=== PATIENT | male | born 1955 | race African-American/Black ===

== ENCOUNTER 2017-02-12 09:14 | Emergency (ER) | payer MEDICAID, OTHER ==
[2017-02-12] MEDS ORDERED: Dexamethasone IV* 4 MG/ML 1 ML (4 MG) IV SLOW PU ONE (09:55)
[2017-02-12] MEDS ORDERED: cloNIDine TAB* 0.1 MG PO ONE (09:55)
[2017-02-12] MEDS ORDERED: Famotidine TAB* 20 MG PO ONE (10:13)
[2017-02-12] MEDS ORDERED: predniSONE TAB* 20 MG PO ONE (10:14)
[2017-02-12 10:38] VITALS: BP 169/139
--- NOTE | 2017-02-12 21:03 | ED ---
Sotero Santos Billy, scribed for Durga Beckwith MD on 02/12/17 at 0927 . Throat Pain/Nasal Congestion - HPI Summary HPI Summary: The patient is a 61 year-old male coming to [facility] from [facility] for evaluation of a choking sensation this morning. He denies any fevers or chills. He denies any sore throat last night. In [facility], KIM [place] has given the patient Benadryl 50mg IM, prednisone 40mg PO, and epinephrine. Per records from the [facility], the patient's symptoms did not improve despite these treatments. - History of Current Complaint Chief Complaint: EDThroatPain Time Seen by Provider: 02/12/17 09:21 Hx Obtained From: Patient Onset/Duration: Gradual Onset, Lasting Hours Severity: Moderate Cough: None - Allergies/Home Medications Allergies/Adverse Reactions: Allergies Allergy/AdvReac Type Severity Reaction Status Date / Time Lactose Allergy Unknown Verified 02/12/17 09:24 Reaction Details Peanut-containing Drug Allergy Unknown Verified 02/12/17 09:24 Products Reaction Details PMH/Surg Hx/FS Hx/Imm Hx Endocrine/Hematology History: Denies: Hx Diabetes Cardiovascular History: Reports: Hx Hypertension Denies: Hx Congestive Heart Failure Respiratory History: Reports: Hx Asthma GI History: Reports: Hx Gastroesophageal Reflux Disease, Other GI Disorders - COLON CANCER W/PARTIAL COLECTOMY History: Denies: Hx Renal Disease Sensory History: Reports: Hx Contacts or Glasses Opthamlomology History: Reports: Hx Contacts or Glasses - Cancer History Cancer Type, Location and Year: COLON CA - Surgical History Surgery Procedure, Year, and Place: PARTIAL COLECTOMY 2005. APPENDECTOMY 2007 - Immunization History Date of Tetanus Vaccine: Unk Date of Influenza Vaccine: Unk Infectious Disease History: Denies: Traveled Outside the [place] in Last 30 Days - Family History Known Family History: Positive: Unknown - The patient is unsure of his family history. - Social History Alcohol Use: None Substance Use Type: Reports: None Smoking Status (MU): Former Smoker Review of Systems Negative: Fever, Chills ENT: Other - Choking sensation Negative: Sore Throat Negative: Cough All Other Systems Reviewed And Are Negative: Yes Physical Exam - Summary Physical Exam Summary: Vital signs: Reviewed Gen.: Patient is a well-developed and nourished male in no acute distress. Patient is lying comfortably on the stretcher. Head: Normacephalic and atraumatic Eyes: PERRLA, EOMI x2. Ears: Right and Left ear canal and TM WNL Nose and mouth: positive slight swelling of the uvula. There is no lip or tongue swelling. No throat swelling. No airway compromise. Neck: Supple, no lymphadenopathy, no JVD Lungs: CTA B/L CVS: S1 & S2 present. No murmurs appreciated. ABDOMEN: Soft, non-tender. No signs of distention. No rebound no guarding, and no masses palpated. Bowel sounds are normal. EXTREMITIES: FROM in all major joints, no edema, no cyanosis or clubbing. NEURO: Alert and oriented x 3. No acute neurological deficits. Speech is normal and follows commands. SKIN: Dry and warm Triage Information Reviewed: Yes Vital Signs On Initial Exam: Initial Vitals Temp Pulse Resp BP Pulse Ox 97.3 F 82 18 176/107 99 02/12/17 09:18 02/12/17 09:18 02/12/17 09:18 02/12/17 09:18 02/12/17 09:18 Vital Signs Reviewed: Yes Diagnostics - Vital Signs Vital Signs Temp Pulse Resp BP Pulse Ox 02/12/17 09:18 97.3 F 82 18 176/107 99 - Laboratory Lab Statement: Any lab studies that have been ordered have been reviewed, and results considered in the medical decision making process. EENT Course/Dx - Course Assessment/Plan: The patient is a 61 year-old male coming to [facility] from [facility] for evaluation of a choking sensation this morning. He denies any fevers or chills. He denies any sore throat last night. In [facility], KIM [place] has given the patient Benadryl 50mg IM, prednisone 40mg PO, and epinephrine. Per records from the [facility], the patient's symptoms did not improve despite these treatments. Rapid strep is found to be negative. Patient is asymptomatic. Patient is afebrile and has no lymphadenopathy therefore I have low suspicion for an infectious etiology. He denies any new medications or new products therefore low suspicion for chemical irritants. I believe symptoms may be related to an allergic reaction. He was given before arrival Benadryl, Prednisone and epinephrine. At arrival patient feels better , He is asymptomatic. He was found to have an increased BP. BP is 143/99. Patient was given 1 dose of Clonidine which he normally takes every day. After medications he is feeling better. He will be discharged back to [facility] with recommendations to continue benadryl PRN, prednisone 40 mg QD and pepcid 10 mg daily. Epipen PRN. ENT / Rn Pacu as needed. I discussed all the findings and test results with the patient. Patient was instructed to return to the emergency room immediately if any of the symptoms return or worsens. Plan of care was discussed with the patient and understands and agrees. All questions were answered at patient satisfaction. There were no further complaints or concerns. Lung exam before discharge: CTA B/L. Good air exchange. No wheezing or crackles heard. CVS: S1 and S2 present. No murmurs appreciated. Patient is alert and oriented x 3. Patient is hemodynamically stable. Patient will be discharged home with follow up PCP in the next 2-3 days - Differential Diagnoses Differential Diagnoses: Sinusitis, Tonsilitis, URI/Bronchitis - Diagnoses Provider Diagnoses: Uvulitis Discharge - Discharge Plan Condition: Stable Disposition: OTHER Discharge Disposition Comment: [place] Patient Education Materials: Uvulitis (ED) Referrals: Lydia BULLOCK,Eugenio Oliver [Primary Care Provider] - The documentation as recorded by the Sotero rivas Billy accurately reflects the service I personally performed and the decisions made by me, Durga Beckwith MD.
== END 2017-02-12 10:39 ==
LOC: ED 09:14
DX: K12.2 Cellulitis and abscess of mouth (principal); R09.89 Other specified symptoms and signs involving the circulatory and respiratory systems; R07.0 Pain in throat; Z87.891 Personal history of nicotine dependence
CPT/HCPCS: 87651; 96374; 99283; A9270-GY; J7512

== ENCOUNTER → 2017-02-19 15:23 | Emergency (ER) | payer OTHER ==
[~2017-02-19 15:23] MED LIST: Acetaminophen TAB* 325 MG PO ONE; Dexamethasone IV* 4 MG/ML 5 ML VIAL (20 MG) IVPB ONE; Iohexol 300* (CONTRAST) 10 ML SDV IV ONE; Ketorolac INJ* 30 MG/ML 1 ML VIAL IV ONE; NS 0.9% 1000 ML* 1,000 ML IV ONE; NS 0.9% 1000 ML* 2,000 ML IV ONE; cefTRIAXone(*) 1 GM in NS 0.9% 50 ML* 50 ML IVPB ONE
[2017-02-19 16:20] LABS: Hematocrit 40 % (42-52); Hemoglobin 13.7 g/dl (14.0-18.0); Mean Corpuscular HGB Conc 34 g/dl (31-36); Mean Corpuscular Hemoglobin 30 pg (27-31); Mean Corpuscular Volume 88 fL (80-94); Mean Platelet Volume 8 um3 (7.4-10.4); Red Blood Count 4.57 10^6/ul (4.0-5.4); Red Cell Distribution Width 14 % (10.5-15); White Blood Count 10.1 10^3/ul (3.5-10.8)
--- NOTE | 2017-02-19 16:37 | RAD ---
INDICATION: Cough and fever COMPARISON: May 01, 2015 TECHNIQUE: An AP portable view obtained at 1628 hours is submitted. FINDINGS: Bones/Soft Tissues: There are no acute bony findings. Cardiomediastinal: The cardiomediastinal silhouette is normal. Lungs: There are no infiltrates. Mild chronic right basilar hypoventilation Pleura: There are no pleural effusions. Other: Chronic elevation right hemidiaphragm. IMPRESSION: NO ACTIVE DISEASE.
[2017-02-19 16:47] LABS: BUN/Creatinine Ratio 15.3 (8-20); C Reactive Protein 67.26 mg/L (< 5.00); Calcium 9.5 mg/dL (8.6-10.3); EGFR African American 78.3 (>60); EGFR Non-African American 60.9 (>60); Globulin 3.3 g/dL (2-4); Potassium 3.9 mmol/L (3.5-5.0); Total Bilirubin 0.6 mg/dL (0.2-1.0); Total Protein 7.3 g/dL (6.4-8.9)
--- NOTE | 2017-02-19 17:40 | RAD ---
INDICATION: Sore throat COMPARISON: None TECHNIQUE: Axial source images were acquired following the intravenous administration of 50 mL Omnipaque 300 Coronal and sagittal reconstructed images were acquired. FINDINGS: Brain and skull base: There are no CT abnormalities of the visualized brain or skull base. The mastoid air cells are well aerated. Salivary glands: The major salivary glands appear normal. Paranasal sinuses: The paranasal sinuses are clear. Nasopharynx: The nasopharynx and nasal cavity appear normal. Oropharynx: The oral, and oropharynx appear normal. Larynx: There are no laryngeal abnormalities. Thyroid: The thyroid appears normal. Lymph nodes: There is no lymphadenopathy by size criteria. Trachea/esophagus: There are no abnormalities of the trachea or visualized esophagus. The visualized lung apices are clear.. Vessels:The vessels appear normal. Bones and soft tissues:The remaining soft tissue elements of the neck are normal. There are no acute bony findings. There are moderate spondylitic changes of the cervical spine from C4 through C7 Other: None IMPRESSION: NO ACUTE CT FINDINGS. NO MASS OR INFLAMMATORY CHANGE. SPONDYLITIC CHANGE OF THE CERVICAL SPINE.
--- NOTE | 2017-02-19 22:25 | RAD ---
INDICATION: Fever. Abdominal pain. COMPARISON: CT abdomen pelvis May 01, 2015 TECHNIQUE: Axial source images were obtained from the hemidiaphragms to the symphysis pubis following administration of oral and intravenous contrast. 139 mL Omnipaque 300 was utilized. Coronal and sagittal reconstructed images were acquired. Lung bases: There is minimal right basilar atelectasis related to diaphragmatic eventration. The lung bases are otherwise clear. Liver: The liver is normal in size. There are no masses. There is no ductal dilatation. Gallbladder: There are no calcified gallstones. There is no evidence of wall thickening or pericholecystic fluid. Spleen: The spleen is normal in size. There are no masses. Pancreas: There is no focal pancreatic mass or ductal dilatation. Adrenal glands: Left adrenal gland is normal. There is a stable 1 cm right adrenal nodule. Kidneys: The kidneys are normal in size and position. There are prompt nephrograms and there is prompt excretion bilaterally. There are no renal parenchymal masses. There is no evidence of nephrolithiasis. Adenopathy: There is no evidence of adenopathy by size criteria. Fluid collections: There are no free or localized fluid collections. Vessels:There are no significant atherosclerotic changes involving the aorta. There is no focal aneurysm. The iliac vessels are normal in caliber. The IVC appears normal. GI tract: The upper GI tract is unremarkable. There is partial colectomy. There is an ileocolonic anastomosis. There are no bowel obstructive findings Pelvic organs: The prostate is enlarged Bladder: There are no bladder masses. Abdominal and pelvic soft tissues: There is a fat-containing periumbilical hernia, unchanged. Osseous structures: There are no acute osseous findings . There is degenerative disc disease at L5-S1 with mild progressive narrowing and mild vacuum disc phenomena. There is again a rounded area for a fracture involving the inferior endplate of L5. There is slightly increased sclerosis about the periphery of this lesion. This is likely degenerative.. Other: Eventration right hemidiaphragm with herniation of a portion of the right hepatic lobe. IMPRESSION: 1. No acute CT findings. No mass or inflammatory change. 2. 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 3. Stable 1 cm right adrenal gland nodule 4. Partial colectomy, unchanged. 5. Fat-containing periumbilical hernia, unchanged 6. Prostatic hypertrophy. 7. Subtle increase in size and increased sclerosis about the rounded area of rarefaction involving the inferior endplate of L5.
--- NOTE | 2017-02-19 22:55 | ED ---
Christiana Santos SooYoung, scribed for Jd Reid MD on 02/19/17 at 1551 . Throat Pain/Nasal Congestion - HPI Summary HPI Summary: A 73 y/o M [employer] inmate presents to ED with c/o sore throat onset approx 2-3 days ago. Associated sx: dysphagia, dyspnea, cough, chest and abd pain, frontal LUCERO, chills last night, weakness, collapse. Today, pt was found on ground after collapse. Pt denies LOC. Denies: diarrhea, dysuria. Pt was seen in ED one week ago, and given steroids which alleviated the pain. SHx: appy, another surgery but pt is unsure of what it is. - History of Current Complaint Chief Complaint: EDThroatPain Time Seen by Provider: 02/19/17 15:40 Hx Obtained From: Patient Onset/Duration: Gradual Onset, Lasting Days, Still Present Severity: Moderate Associated Signs And Symptoms: Positive: Dysphagia Cough: Productive - mildly Related History: Smoking - Allergies/Home Medications Allergies/Adverse Reactions: Allergies Allergy/AdvReac Type Severity Reaction Status Date / Time Lactose Allergy Unknown Verified 02/12/17 09:24 Reaction Details Peanut-containing Drug Allergy Unknown Verified 02/12/17 09:24 Products Reaction Details PMH/Surg Hx/FS Hx/Imm Hx Previously Healthy: No Endocrine/Hematology History: Denies: Hx Diabetes Cardiovascular History: Reports: Hx Hypertension Denies: Hx Congestive Heart Failure Respiratory History: Reports: Hx Asthma GI History: Reports: Hx Gastroesophageal Reflux Disease, Other GI Disorders - COLON CANCER W/PARTIAL COLECTOMY History: Denies: Hx Renal Disease Sensory History: Reports: Hx Contacts or Glasses Opthamlomology History: Reports: Hx Contacts or Glasses - Cancer History Cancer Type, Location and Year: COLON CA - Surgical History Surgery Procedure, Year, and Place: PARTIAL COLECTOMY 2005. APPENDECTOMY 2007 - Immunization History Date of Tetanus Vaccine: Unk Date of Influenza Vaccine: Unk Infectious Disease History: No Infectious Disease History: Denies: Traveled Outside the [place] in Last 30 Days - Family History Known Family History: Positive: Unknown - The patient is unsure of his family history. - Social History Occupation: Unemployed - [employer] Lives: [facility] - [employer] Alcohol Use: None Hx Substance Use: No Substance Use Type: Reports: None Hx Tobacco Use: Yes Smoking Status (MU): Former Smoker Review of Systems Positive: Chills Positive: Sore Throat, Other - pos: dysphagia Positive: Chest Pain, Other - pos: dyspnea Positive: Cough Positive: Abdominal Pain. Negative: Diarrhea Negative: dysuria Neurological: Other Positive: Headache, Weakness - collapse . Negative: Syncope All Other Systems Reviewed And Are Negative: Yes Physical Exam Triage Information Reviewed: Yes Vital Signs On Initial Exam: Initial Vitals Temp Pulse Resp BP Pulse Ox 99.7 F 94 20 110/72 98 02/19/17 15:26 02/19/17 15:26 02/19/17 15:26 02/19/17 15:26 02/19/17 15:26 Vital Signs Reviewed: Yes Appearance: Positive: No Pain Distress, Ill-Appearing - mildly Skin: Positive: Warm, Skin Color Reflects Adequate Perfusion, Dry Head/Face: Positive: Normal Head/Face Inspection Eyes: Positive: EOMI, ARNEL ENT: Positive: Other - NO SWELLING OF POSTERIOR PHARYNX; UVULA SIZE IS NML Neck: Positive: Supple, Nontender Respiratory/Lung Sounds: Positive: Breath Sounds Present, Other - COUGH Cardiovascular: Positive: Tachycardia Abdomen Description: Positive: Soft, Other: - MILDLY TENDER AT RUQ AND LUQ Bowel Sounds: Positive: Present Musculoskeletal: Positive: Normal, Strength/ROM Intact Neurological: Positive: Normal, Sensory/Motor Intact, Alert, Oriented to Person Place, Time Psychiatric: Positive: Affect/Mood Appropriate - [place] Coma Scale Coma Scale Total: 15 Diagnostics - Vital Signs Vital Signs Temp Pulse Resp BP Pulse Ox 02/19/17 15:33 101.3 F 112 20 140/113 96 02/19/17 15:26 99.7 F 94 20 110/72 98 - Laboratory Lab Results: Lab Results 02/19/17 02/19/17 02/19/17 Range/Units 15:17 15:30 15:30 WBC 10.1 (3.5-10.8) 10^3/ul RBC 4.57 (4.0-5.4) 10^6/ul Hgb 13.7 L (14.0-18.0) g/dl Hct 40 L (42-52) % MCV 88 (80-94) fL MCH 30 (27-31) pg MCHC 34 (31-36) g/dl RDW 14 (10.5-15) % Plt Count 223 (150-450) 10^3/ul MPV 8 (7.4-10.4) um3 Neut % (Auto) 74.4 (38-83) % Lymph % (Auto) 14.1 L (25-47) % [place] % (Auto) 9.1 H (1-9) % Eos % (Auto) 1.6 (0-6) % Baso % (Auto) 0.8 (0-2) % Absolute Neuts (auto) 7.5 (1.5-7.7) 10^3/ul Absolute Lymphs (auto) 1.4 (1.0-4.8) 10^3/ul Absolute Monos (auto) 0.9 H (0-0.8) 10^3/ul Absolute Eos (auto) 0.2 (0-0.6) 10^3/ul Absolute Basos (auto) 0.1 (0-0.2) 10^3/ul Absolute Nucleated RBC 0 10^3/ul Nucleated RBC % 0 INR (Anticoag Therapy) 1.03 (0.89-1.11) APTT 32.2 (26.0-36.3) seconds Sodium (133-145) mmol/L Potassium (3.5-5.0) mmol/L Chloride (101-111) mmol/L Carbon Dioxide (22-32) mmol/L Anion Gap (2-11) mmol/L BUN (6-24) mg/dL Creatinine (0.67-1.17) mg/dL Est GFR ( Amer) (>60) Est GFR (Non-Af Amer) (>60) BUN/Creatinine Ratio (8-20) Glucose (70-100) mg/dL Calcium (8.6-10.3) mg/dL Total Bilirubin (0.2-1.0) mg/dL AST (13-39) U/L ALT (7-52) U/L Alkaline Phosphatase (34-104) U/L C-Reactive Protein (< 5.00) mg/L Total Protein (6.4-8.9) g/dL Albumin (3.2-5.2) g/dL Globulin (2-4) g/dL Albumin/Globulin Ratio (1-3) Lipase (11.0-82.0) U/L Influenza A (Rapid) (Negative) Influenza B (Rapid) (Negative) Group A Strep Rapid Negative (Negative) 02/19/17 02/19/17 Range/Units 15:30 20:46 WBC (3.5-10.8) 10^3/ul RBC (4.0-5.4) 10^6/ul Hgb (14.0-18.0) g/dl Hct (42-52) % MCV (80-94) fL MCH (27-31) pg MCHC (31-36) g/dl RDW (10.5-15) % Plt Count (150-450) 10^3/ul MPV (7.4-10.4) um3 Neut % (Auto) (38-83) % Lymph % (Auto) (25-47) % [place] % (Auto) (1-9) % Eos % (Auto) (0-6) % Baso % (Auto) (0-2) % Absolute Neuts (auto) (1.5-7.7) 10^3/ul Absolute Lymphs (auto) (1.0-4.8) 10^3/ul Absolute Monos (auto) (0-0.8) 10^3/ul Absolute Eos (auto) (0-0.6) 10^3/ul Absolute Basos (auto) (0-0.2) 10^3/ul Absolute Nucleated RBC 10^3/ul Nucleated RBC % INR (Anticoag Therapy) (0.89-1.11) APTT (26.0-36.3) seconds Sodium 137 (133-145) mmol/L Potassium 3.9 (3.5-5.0) mmol/L Chloride 108 (101-111) mmol/L Carbon Dioxide 21 L (22-32) mmol/L Anion Gap 8 (2-11) mmol/L BUN 18 (6-24) mg/dL Creatinine 1.18 H (0.67-1.17) mg/dL Est GFR ( Amer) 78.3 (>60) Est GFR (Non-Af Amer) 60.9 (>60) BUN/Creatinine Ratio 15.3 (8-20) Glucose 127 H (70-100) mg/dL Calcium 9.5 (8.6-10.3) mg/dL Total Bilirubin 0.60 (0.2-1.0) mg/dL AST 19 (13-39) U/L ALT 18 (7-52) U/L Alkaline Phosphatase 67 (34-104) U/L C-Reactive Protein 67.26 H (< 5.00) mg/L Total Protein 7.3 (6.4-8.9) g/dL Albumin 4.0 (3.2-5.2) g/dL Globulin 3.3 (2-4) g/dL Albumin/Globulin Ratio 1.2 (1-3) Lipase 10 L (11.0-82.0) U/L Influenza A (Rapid) Negative (Negative) Influenza B (Rapid) Negative (Negative) Group A Strep Rapid (Negative) Result Diagrams: 02/19/17 15:30 02/19/17 15:30 Lab Statement: Any lab studies that have been ordered have been reviewed, and results considered in the medical decision making process. - Radiology CXR Xray Interpretation: No Acute Changes - IMPRESSION: No active dz. Radiology Interpretation Completed By: Radiologist - CT Neck CT CT Interpretation: No Acute Changes - IMPRESSION: No acute CT findings. No mass or inflammatory changes. Spondylitic change of the cervical spine. CT Interpretation Completed By: Radiologist A/P CT CT Interpretation: No Acute Changes - IMPRESSION: 1. No acute CT findings. No mass or inflammatory change. 2. 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 3. Stable 1 cm right adrenal gland nodule 4. Partial colectomy, unchanged. 5. Fat -containing periumbilical hernia, unchanged 6. Prostatic hypertrophy. 7. Subtle increase in size and increased sclerosis about the rounded area of rarefaction involving the inferior endplate of L5. CT Interpretation Completed By: Radiologist Re-Evaluation - Re-Evaluation 1 Re-Evaluation Time: 19:59 Change: Improved Comment: Discussing results with pt. 2 Re-Evaluation Time: 22:34 Change: Improved Comment: Discussing CT results with pt. EENT Course/Dx - Course Course Of Treatment: Pt is a 73 y/o M inmate presenting with sore throat onset approx 2-3 days ago. Associated sx: dysphagia, dyspnea, cough, chest and abd pain, frontal LUCERO, chills last night, weakness, collapse. Today, pt was found on ground after collapse. Pt denies LOC. Denies: diarrhea, dysuria. Pt given fluids, Ceftriaxone, Decadron, Toradol and Tylenol in ED. Strep is negative. CRP is 67.26. CXR was neg. CT showed no acute findings. Both flu tests were negative. A/P CT showed no acute findings. IMPROVED IN ED. DISCUSSED RESULTS WITH PATIENT. I RECOMMEND PATIENT STAYS IN THE INFIMARY UNTIL AFEBRILE AND CONTINUE PREDNISONE 40MG ONCE A DAY AND AUGMENTIN 875MG TWICE A DAY. DISCHARGE HOME STABLE. Assessment/Plan: NO CRITICAL CARE TIME - Diagnoses Provider Diagnoses: Fever, Pharyngitis, Abdominal pain Discharge - Discharge Plan Condition: Stable Disposition: HOME Patient Education Materials: Pharyngitis (ED), Fever in Adults (ED) Referrals: Lydia BULLOCK,Eugenio Oliver [Primary Care Provider] - Additional Instructions: FOLLOW UP WITH YOUR DOCTOR. FOLLOW UP WITH AN ENT SPECIALIST FOR EVALUATION OF RECURRENT UVULITIS. CONSIDER REST IN THE INFIRMARY FOR SEVERAL DAYS UNTIL FEVER FREE. ACETAMINOPHEN DIRECTED NEEDED FOR FEVER. CONTINUE PREDNISONE 40MG ONCE A DAY FOR THE NEXT 3 DAYS. AUGMENTIN 875MG TWICE A DAY FOR 10 DAYS. RETURN TO THE EMERGENCY DEPARTMENT FOR ANY WORSENING OF YOUR CONDITION OR QUESTIONS OR CONCERNS. The documentation as recorded by the Christiana rivas SooYoung accurately reflects the service I personally performed and the decisions made by me, Jd Reid MD.
[2017-02-19 23:36] VITALS: BP 150/98
== END | disposition home or self-care (01) ==
LOC: ED 15:23
DX: R50.9 Fever, unspecified (principal); J02.9 Acute pharyngitis, unspecified; R10.9 Unspecified abdominal pain; R13.10 Dysphagia, unspecified; R07.9 Chest pain, unspecified; Z87.891 Personal history of nicotine dependence
CPT/HCPCS: 36415; 70491; 71010; 74177; 80053; 83690; 85025; 85610; 85730; 86140; 87040; 87502; 87651; 96374; 99283; A9270-GY; J0696; J1885; Q9967